=== PATIENT | male | born 1960 | race American Indian/Alaskan Native ===

== ENCOUNTER 2016-12-28 13:03 | Inpatient (IN) | payer MEDICAID ==
--- NOTE | 2016-12-28 13:36 | C.PDOC ---
History Of Present Illness 56 year old male presents to the ED with complaints of depression and suicidal ideations. Patient notes a history of depression and was previously admitted for depression and a suicide attempt. He began medications and has stopped using them. Patient plans to cut his wrists but denies any physical complaints at this time. Time Seen by Provider: 12/28/16 13:19 Chief Complaint (Nursing): Psychiatric Evaluation History Per: Patient History/Exam Limitations: no limitations Onset/Duration Of Symptoms: Unknown Current Symptoms Are (Timing): Still Present Suicide/Self Injury Attempted (Context): Other (unknown past attempt method. Current plan is to cut wrist. ) Associated Symptoms: Depression, Suicidal Thoughts, Suicidal Plan Involuntary Hold By: None Recent travel outside of the [place]: No Additional History Per: Prior Records Past Medical History Reviewed: Historical Data, Nursing Documentation, Vital Signs Vital Signs: Last Vital Signs Temp 97.9 F 12/28/16 16:14 Pulse 88 12/28/16 16:14 Resp 17 12/28/16 16:24 BP 148/88 12/28/16 16:14 Pulse Ox 100 12/28/16 16:14 - Medical History PMH: Depression, HTN Family History: States: Unknown Family Hx - Social History Hx Alcohol Use: Yes Hx Substance Use: No Review Of Systems Constitutional: Negative for: Fever, Chills Cardiovascular: Negative for: Chest Pain, Palpitations Respiratory: Negative for: Cough, Shortness of Breath Gastrointestinal: Negative for: Nausea, Vomiting, Abdominal Pain, Diarrhea Psych: Positive for: Depression, Suicidal ideation Physical Exam - Physical Exam Appears: Non-toxic, No Acute Distress Skin: Warm, Dry Head: Atraumatic Eye(s): bilateral: Normal Inspection, PERRL, EOMI Oral Mucosa: Moist Neck: Supple Chest: Symmetrical, No Deformity Cardiovascular: Rhythm Regular Respiratory: Normal Breath Sounds, No Rales, No Rhonchi, No Wheezing Gastrointestinal/Abdominal: Soft, No Tenderness, No Distention, No Guarding, No Rebound Extremity: Normal ROM, No Tenderness Neurological/Psych: Oriented x3, Normal Speech, Normal Cognition ED Course And Treatment - Laboratory Results Result Diagrams: 12/28/16 13:49 12/28/16 13:49 O2 Sat by Pulse Oximetry: 100 (on RA) Pulse Ox Interpretation: Normal Progress Note: Old records reviewed, and the patient has not been seen in this ED in the past. Medical Decision Making Medical Decision Making: Medically cleared for psych admission. The patient was evaluated by crisis team and was admitted to the psych floor. Disposition - Disposition Disposition: HOSPITALIZED Disposition Time: 16:00 Condition: GOOD - Clinical Impression Clinical Impression: Manic bipolar I disorder - Scribe Statement The provider has reviewed the documentation as recorded by the Altheaibe Debo Pascal All medical record entries made by the Zacarias were at my direction and personally dictated by me. I have reviewed the chart and agree that the record accurately reflects my personal performance of the history, physical exam, medical decision making, and the department course for this patient. I have also personally directed, reviewed, and agree with the discharge instructions and disposition.
[2016-12-28 13:55] LABS: BASO # 0.1 K/uL (0.0-0.2); BASO % 1.1 % (0.0-2.0); EOS # 0.3 K/uL (0.0-0.7); EOS % 3.3 % (0.0-4.0); HEMATOCRIT 39.2 % (35.0-51.0); LYMPH # 1.5 K/uL (1.0-4.3); LYMPH % 19.3 % (20.0-40.0); MEAN CELL VOLUME 91.6 fL (80.0-94.0); MEAN CORPUSCULAR HEMOGLOBIN 30.6 pg (27.0-31.0); MEAN CORPUSCULAR HGB CONC 33.4 g/dL (33.0-37.0); MEAN PLATELET VOLUME 7.4 fL (7.2-11.7); MONO # 0.8 K/uL (0.0-0.8); MONO % 9.8 % (0.0-10.0); NRBC % 0.1 % (0.0-2.0); RED CELL DISTRIBUTION WIDTH 13.2 % (11.5-14.5); WHITE BLOOD COUNT 7.9 K/uL (4.8-10.8)
[2016-12-28 14:02] LABS: CHLORIDE 103 mmol/L (98-107); SODIUM 143 mmol/L (132-148)
[2016-12-28 14:04] LABS: BILIRUBIN,TOTAL 0.6 mg/dL (0.2-1.3); GFR AFRICAN-AMERICAN > 60
[2016-12-28 14:05] LABS: ALB/GLOB RATIO 1.2 (1.0-2.1); ALKALINE PHOSPHATASE 63 U/L (38-126); ALT/SGPT 41 U/L (21-72); AST/SGOT 28 U/L (17-59); BLOOD UREA NITROGEN 16 mg/dL (9-20); CARBON DIOXIDE 25 mmol/L (22-30); GLUCOSE,RANDOM 91 mg/dL (75-110); TOTAL PROTEIN 7.6 g/dL (6.3-8.3)
[2016-12-28 14:06] LABS: ALCOHOL SERUM 34 mg/dl (0-10)
[2016-12-28 14:49] LABS: URINE BILIRUBIN NEGATIVE (NEGATIVE); URINE BLOOD NEGATIVE (NEGATIVE); URINE COLOR Yellow (YELLOW); URINE GLUCOSE (UA) NORMAL (Normal); URINE KETONE NEGATIVE (NEGATIVE); URINE LEUKOCYTE ESTERASE NEG Leu/uL (Negative); URINE PROTEIN NEGATIVE (NEGATIVE); URINE UROBILINOGEN NORMAL mg/dL (0.2-1.0); WBC URINE < 1 /hpf (0-5)
--- NOTE | 2016-12-28 17:18 | PCM.BM ---
<Mt Olivia - Last Filed: 12/28/16 17:17> Treatment Plan Problems - Problems identified on initial assessmt Depression Date Initiated: 12/28/16 Time Initiated: 16:30 Assessment reference: NA Status: Active Suicidal Ideation Date Initiated: 12/28/16 Time Initiated: 16:30 Assessment reference: NA Status: Active Treatment assets and liabiliti Patient Assests: adapts well, self-reliant, ADL independent Patient Liabilities: financial problems, substance abuse (ETOH), medical problems (Hypertension) - Milieu Protocol Maintain good personal hygiene: daily Encourage regular showers, daily Remind patient to perform daily oral care, every shift Assist patient to perform ADL's Maintain personal safety: every shift Educate patient to report safety concerns to staff, every shift Monitor environment for contraband/sharps Medication safety: Monitor for expected outcome, potential side effects: every shift, Assess barriers to learning: every shift, Assess readiness for medication education: every shift <Alexa Ann - Last Filed: 12/29/16 11:40> Family Contact Family involvement: Family/SO is involved Family contact: Patient agrees to contact Family contact name: Concepcion White- Family contacted how many times per week?: 1 Discharge/Continuing Care - Education Needs Education Needs: Patient Medication, Patient Coping Skills, Patient Aftercare Safety Plan - Discharge Discharge Criteria: Tolerates medication w/o severe side effects, Free of Suicidal thoughts, Reduction of target symptoms Discharge to:: Home, With Family - Treatment Team Participation Discussed with Family/SO: Yes Was Patient/Family/SO present at Treatment Team Meeting: Yes
--- NOTE | 2016-12-29 10:10 | PCM.PSYCH ---
Initial Psychiatric Evaluation - Initial Psychiatric Evaluation Type of Admission: Voluntary Legal Status: Capacity Chief Complaint (in patient's own words): "I was very depressed and having thoughts of hurting people" Patient's Reaction to Hospitalization: cooperative History of Present Illness and Precipitating Events: Patient is a 56 year old male who has a pmhx of paranoid schizophrenia, bipolar disorder, HTN, and chronic back pain. Patient's psychiatric medications were changed by his psychiatrist at [facility]. Patient was switched from seroquel to haldol which he said gave him GI upset so he stopped taking it about 3-4 days ago. He then started to experience severe depression with hopelessness and thinking that is better than life. He was hearing voices and once voice told him to get a knife and stab his . He also has visual hallucinations where he thinks he sees someone following him. He tried contacting his psychiatrist, but was unable to. He started getting violent and having thoughts of hurting people around him so his called 911. Patient has no history of drug abuse. Patient drinks 1/2 pint of alcohol every few days. Prior to admission patient had one shot of liquor and half of a beer. He has never been to rehab or detox for alcohol. Today patient said he woke up feeling much better, but is now feeling more depressed again. He does not want to socialize with anyone. Patient has no nausea, vomiting, abdominal pain, or tremors. Psychhx: schizophrenia, bipolar disorder, hospitalized about 4x for psychiatric issues 2 past suicide attempts: 3 years ago overdosed on tylenol, 1 [place] PMH: chronic back pain, hypertension Social history: , lives with , 2 children ages 32 and 29, patient works apartment house manager cleaning offices, denies drugs, 1/2 pint of alcohol every 2-3 days, cigarettes: 2 / week Current Medications: Active Medications Generic Name Dose Route Start Last Admin Trade Name Freq PRN Reason Stop Dose Admin Acetaminophen 650 mg 12/28/16 15:26 Tylenol 325mg Tab PO Q6 PRN Fever >100.4 F Benztropine Mesylate 2 mg 12/28/16 15:26 12/28/16 16:44 Cogentin PO 2 mg Q6 PRN Administration Extra Pyramidal Symptoms Clonidine HCl 0.1 mg 12/28/16 16:31 12/28/16 16:45 Catapres PO 0.1 mg Q8H PRN Administration Elevated Blood Pressure Diphenhydramine HCl 50 mg 12/28/16 15:26 12/28/16 21:01 Benadryl PO 50 mg Q6 PRN Administration Extra Pyramidal Symptoms Haloperidol 5 mg 12/28/16 15:26 12/28/16 16:45 Haldol PO 5 mg Q8 PRN Administration Moderate Agitation Haloperidol 5 mg 12/28/16 18:00 12/28/16 17:12 Haldol PO Not Given BID LENARD Haloperidol Lactate 5 mg 12/28/16 15:26 Haldol IM Q8 PRN Moderate Agitation Lisinopril 10 mg 12/29/16 10:00 Zestril PO DAILY LENARD Pneumococcal Polyvalent Vaccine 0.5 ml 12/30/16 10:00 Pneumovax 23 Vaccine IM 12/30/16 10:01 .ONCE ONE Trazodone HCl 50 mg 12/28/16 22:00 12/28/16 21:01 Desyrel PO 50 mg HS LENARD Administration Past Psychiatric History - Past Psychiatric History Previous Treatment History: Inpatient History of ETOH/Drug Use: alcohol: 1/2 pint every 2-3 days tobacco: 2 cigarettes/ week Pertinent Medical Hx (Current Medical&Sleep Prob, Allergies): Allergies Allergy/AdvReac Type Severity Reaction Status Date / Time FISH Allergy Verified 12/28/16 13:12 tomato Allergy Verified 12/28/16 13:12 Haloperidol [Haldol] 1 tab PO HS 12/28/16 Lisinopril [Zestril] 1 tab PO DAILY 12/28/16 Review of Systems - Psychiatric Psychiatric: Auditory Hallucinations, Depression, Homicidal Ideation, Hopelessness, Mood Swings, Suicidal Ideation, Visual Hallucinations Mental Status Examination - Affect Affect: Broad - Motor Activity Motor Activity: Calm - Reliability in Providing Information Reliability in Providing Information: Good - Speech Speech: Organized - Mood Mood: Depressed - Formal Thought Process Formal Thought Process: No Impairment - Obsessions/Compulsions Obsessions: No Compulsions: No - Cognitive Functions Orientation: Person, Place, Situation, Time Sensorium: Alert Attention/Concentration: Attentive Abstract Thinking: [place] Estimate of Intelligence: Average Judgement: Intact, as evidence by: Insight regarding need for hospitalization Memory: Recent intact, as evidence by: Ability to recall events of the day - Risk Risk: Suicidal, Homicidal - Strength & Assets Inventory Strength & Assets Inventory: Family support, Employment history DSM 5 DX - DSM 5 DSM 5 Diagnosis: schizophrenia bipolar disorder, current episode depressed alcohol abuse disorder - Recommended/Plan of Treatment Treatment Recommendations and Plan of Treatment: Schizphrenia Cogentin 2 mg prn Prolixin 5mg PO BID Diphenhydramine 50 mg PRN Haldol 5mg PRN Trazodone 50mg PO HS Attend groups and activities Support and psychoeducation [place] and CBT Refer to jail inpatient if possible Family contact Bipolar disorder, current episode: depression Depakote 250mg po BID Attend groups and activities Support and psychoeducation [place] and CBT Alcohol abuse disorder Attend groups and activities Support and psychoeducation Hypertension Lisinopril 10 mg po daily Catapres .1 mg po PRN elevated blood pressure 33min Prognosis: fair with medications - Smoking Cessation Smoking Cessation Initiated: No Reason for not providing: smokes rarely
[2016-12-29] MEDS: Aluminum Hydroxide/Magnesium Hydroxide Susp (30 mL) PO PRN (17:11)
[2016-12-29] MEDS: Divalproex 250 mg DR Tab PO SCH (17:55)
[2016-12-30] MEDS: Divalproex 250 mg DR Tab PO SCH ×2 (09:32→18:18)
[2016-12-30] MEDS ORDERED: Pneumococcal 23-Valent Vaccine IM ONE (10:00)
--- NOTE | 2016-12-30 17:54 | PCM.PYCHPN ---
Psychiatric Progress Note - Psychiatric Progress Note Patient seen today, length of contact: 15 minutes Patient Chief Complaint: I'm feeling much better. Can I get Flexeril for by back ache. Problems Identified/Issues Discussed: Patient seen. Chart reviewed. Case discussed with the staff. Issues related to illness and treatment were discussed with the patient. Reported compliant with treatment with no adverse affects. Tolerating treatment very well. Reported feeling much better with the treatment. Asking for Flexeril for his back ache. Education provided and offered Motrin. Patient accepted. We will start Motrin when necessary. At the time of evaluation, was awake alert oriented 3, had no delusions, no auditory or visual hallucinations, no suicidal ideations or homicidal ideations. Medical Problems: Hypertension Diagnostic Results: Reviewed DSM 5 Symptoms Update: Improving with treatment Medication Change: No Medical Record Reviewed: Yes Mental Status Examination - Cognitive Function Orientation: Person, Place, Situation, Time Memory: Intact Attention: WNL Concentration: WNL Association: WNL Fund of Knowledge: WNL Decription of patient's judgement and insights: Fair - Mood Mood: Depressed (Much less than before) - Affect Affect: Other (Appropriate) - Speech Speech: Appropriate - Formal Thought Process Formal Thought Process: No Impairment - Suicidal Ideation Suicidal Ideation: No - Homicidal Ideation Homicidal Ideation: No Goal/Treatment Plan - Goal/Treatment Plan Need for Continued Stay: Remain at risks for inpatient hospitalization, Discharge may exacerbated symptoms, Severe functional impairment Progress Toward Problem(s) and Goals/Treatment Plan: Patient education Supportive therapy Start Motrin 600 mg every 6 hours, when necessary for pain. Continue rest of the treatment as before Estimated Date of D/C: 01/04/17 - Smoking Cessation Smoking Cessation Initiated: No
[2016-12-30] MEDS: Aluminum Hydroxide/Magnesium Hydroxide Susp (30 mL) PO PRN (18:21)
[2016-12-31] MEDS: Aluminum Hydroxide/Magnesium Hydroxide Susp (30 mL) PO PRN ×2 (09:05→17:10)
[2016-12-31] MEDS: Divalproex 250 mg DR Tab PO SCH ×2 (09:05→17:10)
--- NOTE | 2016-12-31 16:09 | PCM.PYCHPN ---
Psychiatric Progress Note - Psychiatric Progress Note Patient seen today, length of contact: 15 minutes Patient Chief Complaint: I'm feeling much better. Problems Identified/Issues Discussed: Patient seen. Chart reviewed. Case discussed with the staff. Issues related to illness and treatment were discussed with the patient. Reported compliant with treatment with no adverse affects. Tolerating treatment very well. Reported feeling much better with the treatment. At the time of evaluation, was awake alert oriented 3, had no delusions, no auditory or visual hallucinations, no suicidal ideations or homicidal ideations. Medical Problems: Hypertension Diagnostic Results: Reviewed DSM 5 Symptoms Update: Improving with treatment Medication Change: No Medical Record Reviewed: Yes Mental Status Examination - Cognitive Function Orientation: Person, Place, Situation, Time Memory: Intact Attention: WNL Concentration: WNL Association: WNL Fund of Knowledge: [facility] Decription of patient's judgement and insights: Fair - Mood Mood: Depressed (Much less than before) - Affect Affect: Other (Appropriate) - Speech Speech: Appropriate - Formal Thought Process Formal Thought Process: No Impairment - Suicidal Ideation Suicidal Ideation: No - Homicidal Ideation Homicidal Ideation: No Goal/Treatment Plan - Goal/Treatment Plan Need for Continued Stay: Remain at risks for inpatient hospitalization, Discharge may exacerbated symptoms, Severe functional impairment Progress Toward Problem(s) and Goals/Treatment Plan: Patient education Supportive therapy Continue treatment as before Estimated Date of D/C: 01/04/17 - Smoking Cessation Smoking Cessation Initiated: No
[2017-01-01 07:34] VITALS: O2SAT 99
[2017-01-01] MEDS: Divalproex 250 mg DR Tab PO SCH ×2 (10:03→17:38)
[2017-01-01] MEDS: Aluminum Hydroxide/Magnesium Hydroxide Susp (30 mL) PO PRN ×2 (10:05→19:38)
--- NOTE | 2017-01-01 10:42 | PCM.PYCHPN ---
Psychiatric Progress Note - Psychiatric Progress Note Patient seen today, length of contact: 15 minutes Patient Chief Complaint: "I feel a little depressed." Problems Identified/Issues Discussed: The pt is seen, chart reviewed, case discussed with staff. The pt reports feeling slightly depressed. He states feeling upbeat and energized yesterday night. He was recently on change of medications. The pt reports feeling restless, since this morning. He describes his mood as an "emotional roller coaster." The pt reports hearing voices at 6 am this morning. He states they are commanding, with bizarre ideas, and encourage him to stay in isolation. He states they tell him to "walk through the hallways with only his underwear on," or "walk out of the hospital." However, the patient is aware of these voices and denies acting upon them. The patient denies hearing voices. The patient denies suicidal or homicidal ideation's. The pt seems highly motivated for treatment course. Support given, CBT and [place] used briefly. Pt is improving slowly and needs more time. No SEs from medications, risks discussed. After care discussed. Medication Change: No Medical Record Reviewed: Yes Mental Status Examination - Cognitive Function Orientation: Person, Place, Situation, Time Memory: Intact Attention: WNL Concentration: Poor Association: Loose Fund of Knowledge: WNL - Mood Mood: Depressed (Much less than before), Anxious - Affect Affect: Broad - Speech Speech: Appropriate, Soft - Formal Thought Process Formal Thought Process: Delusions, Paranoia, Loosening of associations - Suicidal Ideation Suicidal Ideation: No - Homicidal Ideation Homicidal Ideation: No Goal/Treatment Plan - Goal/Treatment Plan Need for Continued Stay: Remain at risks for inpatient hospitalization, Discharge may exacerbated symptoms, Severe functional impairment Progress Toward Problem(s) and Goals/Treatment Plan: schizoaffective disorder bipolar type Cogentin 2 mg prn Prolixin 5mg PO BID Diphenhydramine 50 mg PRN Haldol 5mg PRN Trazodone 50mg PO HS Attend groups and activities Support and psychoeducation [place] and CBT Refer to rodent exterminator inpatient if possible Family contact Depakote 250mg po BID Alcohol abuse disorder Attend groups and activities Support and psychoeducation Hypertension Lisinopril 10 mg po daily Catapres .1 mg po PRN elevated blood pressure Estimated Date of D/C: 01/04/17 - Smoking Cessation Smoking Cessation Initiated: No
[2017-01-02] MEDS: Divalproex 250 mg DR Tab PO SCH (09:35)
--- NOTE | 2017-01-02 10:04 | PCM.PYCHPN ---
Psychiatric Progress Note - Psychiatric Progress Note Patient seen today, length of contact: 15 minutes Patient Chief Complaint: "I feel fine." Problems Identified/Issues Discussed: The pt is seen, chart reviewed, case discussed with staff. The pt reports experiencing a panic attack last night. The pt reports improvement in the voices and psychosis. The pt reports feeling calmer, absent of any mood changes. He denies suicidal or homicidal ideation's. He reports eating well and sleeping well otherwise. Support given, CBT and [place] used briefly. Pt is improving slowly and needs more time. No SEs from medications, risks discussed. After care discussed. Medication Change: No Medical Record Reviewed: Yes Mental Status Examination - Cognitive Function Orientation: Person, Place, Situation, Time Memory: Intact Attention: WNL Concentration: Poor Association: Loose Fund of Knowledge: WNL - Mood Mood: Depressed (Much less than before), Anxious - Affect Affect: Broad - Speech Speech: Appropriate, Soft - Formal Thought Process Formal Thought Process: Delusions, Paranoia, Loosening of associations - Suicidal Ideation Suicidal Ideation: No - Homicidal Ideation Homicidal Ideation: No Goal/Treatment Plan - Goal/Treatment Plan Need for Continued Stay: Remain at risks for inpatient hospitalization, Discharge may exacerbated symptoms, Severe functional impairment Progress Toward Problem(s) and Goals/Treatment Plan: schizoaffective disorder bipolar type Cogentin 2 mg prn Prolixin 5mg PO BID Diphenhydramine 50 mg PRN Haldol 5mg PRN Trazodone 50mg PO HS Attend groups and activities Support and psychoeducation [place] and CBT Refer to termite exterminator helper inpatient if possible Family contact Depakote 250mg po BID Alcohol abuse disorder Attend groups and activities Support and psychoeducation Hypertension Lisinopril 10 mg po daily Catapres .1 mg po PRN elevated blood pressure Estimated Date of D/C: 01/04/17 - Smoking Cessation Smoking Cessation Initiated: No
[2017-01-02] MEDS: Aluminum Hydroxide/Magnesium Hydroxide Susp (30 mL) PO PRN ×2 (10:17→18:05)
[2017-01-02] MEDS: Divalproex 500 mg DR Tab PO SCH (18:05)
[2017-01-03] MEDS: Divalproex 500 mg DR Tab PO SCH ×2 (09:56→17:05)
[2017-01-03] MEDS: Aluminum Hydroxide/Magnesium Hydroxide Susp (30 mL) PO PRN ×2 (09:59→17:05)
--- NOTE | 2017-01-03 22:58 | PCM.PYCHPN ---
Psychiatric Progress Note - Psychiatric Progress Note Patient seen today, length of contact: 15 minutes Patient Chief Complaint: "I feel fine." Problems Identified/Issues Discussed: Patient seen and evaluated, chart reviewed and discussed with the nurse. Patient appears more organized and less paranoid and less delusional. Patient remained isolated, confined and withdrawn. Patient still appears mildly paranoid and delusional. He reports improvement in his mood and improvement in the feelings of hopelessness and helplessness. He is taking medication and denied any side effects. He needs more time for stabilization. Supportive therapy and psychoeducation were given. Medication Change: No Medical Record Reviewed: Yes Mental Status Examination - Cognitive Function Orientation: Person, Place, Situation, Time Memory: Intact Attention: WNL Concentration: Poor Association: Loose Fund of Knowledge: WNL - Mood Mood: Depressed (Much less than before), Anxious - Affect Affect: Broad - Speech Speech: Appropriate, Soft - Formal Thought Process Formal Thought Process: Delusions, Paranoia - Suicidal Ideation Suicidal Ideation: No - Homicidal Ideation Homicidal Ideation: No Goal/Treatment Plan - Goal/Treatment Plan Need for Continued Stay: Remain at risks for inpatient hospitalization, Discharge may exacerbated symptoms, Severe functional impairment Progress Toward Problem(s) and Goals/Treatment Plan: schizoaffective disorder bipolar type Cogentin 2 mg prn Prolixin 5mg PO BID Diphenhydramine 50 mg PRN Haldol 5mg PRN Trazodone 50mg PO HS Attend groups and activities Support and psychoeducation [place] and CBT Refer to veterinary pharmacologist inpatient if possible Family contact Depakote 250mg po BID Alcohol abuse disorder Attend groups and activities Support and psychoeducation Hypertension Lisinopril 10 mg po daily Catapres .1 mg po PRN elevated blood pressure Estimated Date of D/C: 01/04/17 - Smoking Cessation Smoking Cessation Initiated: No
[2017-01-04] MEDS: Aluminum Hydroxide/Magnesium Hydroxide Susp (30 mL) PO PRN ×2 (10:28→17:40)
[2017-01-04] MEDS: Divalproex 500 mg DR Tab PO SCH ×2 (10:28→17:22)
--- NOTE | 2017-01-04 12:05 | PCM.PYCHPN ---
Psychiatric Progress Note - Psychiatric Progress Note Patient seen today, length of contact: 16 minutes Patient Chief Complaint: "I feel fine." Problems Identified/Issues Discussed: Patient seen and evaluated, chart reviewed and discussed with the nurse. Patient appears much improvement in the voices and psychosis. He reports improvement in his mood and improvement in the feelings of hopelessness and helplessness. He is taking medication and denied any side effects. He needs more time for stabilization. Supportive therapy and psychoeducation were given. Medication Change: No Medical Record Reviewed: Yes Mental Status Examination - Cognitive Function Orientation: Person, Place, Situation, Time Memory: Intact Attention: WNL Concentration: WNL Association: [facility] Fund of Knowledge: [facility] - Mood Mood: Depressed (Much less than before), Anxious - Affect Affect: Broad - Speech Speech: Appropriate, Soft - Formal Thought Process Formal Thought Process: No Impairment - Suicidal Ideation Suicidal Ideation: No - Homicidal Ideation Homicidal Ideation: No Goal/Treatment Plan - Goal/Treatment Plan Need for Continued Stay: Remain at risks for inpatient hospitalization, Discharge may exacerbated symptoms, Severe functional impairment Progress Toward Problem(s) and Goals/Treatment Plan: schizoaffective disorder bipolar type Cogentin 2 mg prn Prolixin 5mg PO BID Diphenhydramine 50 mg PRN Haldol 5mg PRN Trazodone 50mg PO HS Attend groups and activities Support and psychoeducation [place] and CBT Refer to manager intermediate inpatient if possible Family contact Depakote 250mg po BID Alcohol abuse disorder Attend groups and activities Support and psychoeducation Hypertension Lisinopril 10 mg po daily Catapres .1 mg po PRN elevated blood pressure Estimated Date of D/C: 01/04/17 - Smoking Cessation Smoking Cessation Initiated: No
[2017-01-05 07:04] VITALS: BP 136/86; PULSE 91; RESP 19; TEMP 97.9
[2017-01-05] MEDS: Divalproex 500 mg DR Tab PO SCH (09:40)
[2017-01-05] MEDS: Aluminum Hydroxide/Magnesium Hydroxide Susp (30 mL) PO PRN (09:57)
--- NOTE | 2017-01-05 09:58 | PCM.PYCHDC ---
Mental Status Examination - Mental Status Examination Orientation: Person, Place, Situation, Time Memory: Intact Mood: Neutral Affect: Constricted Speech: Soft Attention: WNL Concentration: WNL Association: WNL Fund of Knowledge: WNL Formal Thought Process: No Impairment Description of patient's judgement and insight: good, fair Psychotic Thoughts and Behaviors: denies any AVH Suicidal Ideation: No Current Homicidal Ideation?: No Discharge Summary - Discharge Note Reason for Hospitalization: Patient is a 56 year old male who has a pmhx of paranoid schizophrenia, bipolar disorder, HTN, and chronic back pain. Patient's psychiatric medications were changed by his psychiatrist at [facility] Patient was switched from seroquel to haldol which he said gave him GI upset so he stopped taking it about 3-4 days ago. He then started to experience severe depression with hopelessness and thinking that is better than life. He was hearing voices and once voice told him to get a knife and stab his . He also has visual hallucinations where he thinks he sees someone following him. He tried contacting his psychiatrist, but was unable to. He started getting violent and having thoughts of hurting people around him so his called 911. Patient has no history of drug abuse. Patient drinks 1/2 pint of alcohol every few days. Prior to admission patient had one shot of liquor and half of a beer. He has never been to rehab or detox for alcohol. Today patient said he woke up feeling much better, but is now feeling more depressed again. He does not want to socialize with anyone. Patient has no nausea, vomiting, abdominal pain, or tremors. Psychhx: schizophrenia, bipolar disorder, hospitalized about 4x for psychiatric issues 2 past suicide attempts: 3 years ago overdosed on tylenol, 1 year ago [place] PMH: chronic back pain, hypertension Social history: , lives with , 2 children ages 32 and 29, patient works auto parts clerk cleaning offices, denies drugs, 1/2 pint of alcohol every 2-3 days, cigarettes: 2 / week Consultations:: List each consultation separately and include: 1. Reason for request. 2. Findings. 3. Follow-up Summary of Hospital Course include:: 1. Description of specific treatment plan utilized for patients during their course of treatmen. 2. Summarize the time- course for resolution of acute symptoms and/or regressed behaviors. 3. Describe issues identified and worked on during hospitalization. 4. Describe medication utilized. 5. Describe medical problems identified and treated. 6. Reassessment of suicide risk Summary of Hospital Course: During the course of his stay, patient (pt) started progressively improving and he no longer remained irritable, depressed, suicidal and paranoid. His mood and paranoia were improved and he started attending groups and meetings and started socializing. Patient denied any feelings of hopelessness, helplessness, and worthlessness, denied any problem with the sleep or appetite, denied suicidal ideation or homicidal ideation. Pt denied any auditory or visual hallucinations. Some changes were made in his current medications and patient was discharged on following medications. He tolerated these medications very well and denied any side effects. - Final Diagnosis (DSM 5) Condition upon Discharge: GOOD DSM 5: Schizoaffective disorder bipolar type Alcohol use disorder severe Disposition: HOME/ ROUTINE Follow-up Treatment Plan: Education: Pt was educated and counseled about the risks and benefits of taking and not taking medications. Pt was educated and counseled about the risks of drinking and abusing drugs. Pt was educated and counseled to go to the ER or call 911 if pt develop suicidal ideation or homicidal ideation, worsening of symptoms or severe side effects of the meds. Prescriptions/Medication Reconciliation: amLODIPine [Norvasc] 10 mg PO DAILY #30 tab Divalproex [Depakote DR] 500 mg PO BID #60 tcp fluPHENAZine [Prolixin] 5 mg PO BID #60 tab QUEtiapine [SEROquel] 200 mg PO HS #30 tab - Smoking Cessation Smoking Cessation Medication prescribed: No - Antipsychotic Medications Pt discharged on 2 or more routine antipsychotic medications: No
== END 2017-01-05 11:00 | disposition home or self-care (01) | DRG 430 ==
LOC: C.ER 13:03 → C.5E 15:56
PROVIDERS: ADMIT Psychiatry & Neurology Psychiatry; ATTEND Psychiatry & Neurology Psychiatry
PROC: GZ56ZZZ Individual Psychotherapy, Supportive (ICD-10-PCS; principal; 2016-12-28)
DX: F25.0 Schizoaffective disorder, bipolar type (principal); R45.851 Suicidal ideations; I10 Essential (primary) hypertension; F10.10 Alcohol abuse, uncomplicated; F17.210 Nicotine dependence, cigarettes, uncomplicated; Y90.1 Blood alcohol level of 20-39 mg/100 ml

== ENCOUNTER 2017-09-13 14:50 | Inpatient (IN) | payer MEDICAID ==
[2017-09-13 16:18] LABS: BASO # 0.1 K/uL (0.0-0.2); BASO % 1.3 % (0.0-2.0); EOS # 0.2 K/uL (0.0-0.7); EOS % 2.7 % (0.0-4.0); HEMOGLOBIN 14.7 g/dL (12.0-18.0); LYMPH % 22.4 % (20.0-40.0); MEAN CORPUSCULAR HGB CONC 35.2 g/dL (33.0-37.0); MEAN PLATELET VOLUME 7.3 fL (7.2-11.7); MONO # 0.7 K/uL (0.0-0.8); MONO % 7.4 % (0.0-10.0); NEUT % 66.2 % (50.0-75.0); NRBC % 0.1 % (0.0-2.0); RBC 4.73 Mil/uL (4.40-5.90); RED CELL DISTRIBUTION WIDTH 13.3 % (11.5-14.5); WHITE BLOOD COUNT 9.1 K/uL (4.8-10.8)
[2017-09-13 16:29] LABS: ALB/GLOB RATIO 1.2 (1.0-2.1); ALBUMIN 4.4 g/dL (3.5-5.0); ALT/SGPT 37 U/L (21-72); AST/SGOT 38 U/L (17-59); BLOOD UREA NITROGEN 17 mg/dL (9-20); CALCIUM 9.4 mg/dl (8.6-10.4); GFR AFRICAN-AMERICAN > 60; GFR NON-AFRICAN AMERICAN > 60
[2017-09-13 16:34] LABS: MEAN CELL VOLUME 87.9 fL (80.0-94.0)
[2017-09-13 16:45] LABS: SQUAMOUS EPITHIAL < 1 /hpf (0-5); URINE BILIRUBIN NEGATIVE (NEGATIVE); URINE BLOOD NEGATIVE (NEGATIVE); URINE CLARITY Hazy (Clear); URINE COLOR Amber (YELLOW); URINE GLUCOSE (UA) NORMAL (Normal); URINE LEUKOCYTE ESTERASE NEG Leu/uL (Negative); URINE PROTEIN NEGATIVE (NEGATIVE); URINE UROBILINOGEN NORMAL mg/dL (0.2-1.0)
[2017-09-13 16:46] LABS: URINE BACTERIA OCC (<OCC)
[2017-09-13 16:52] LABS: BARBITURATES, UR NEGATIVE (NEGATIVE); BENZODIAZEPINES, UR NEGATIVE (NEGATIVE); PHENCYCLIDINE, UR NEGATIVE (NEGATIVE)
[2017-09-13 16:54] LABS: OPIATES, UR POSITIVE (NEGATIVE)
--- NOTE | 2017-09-13 18:41 | C.PDOC ---
History Of Present Illness 57y/o male presents to the ER complaining of hearing voices. Patient states that the voices are telling him, " to hurt himself and people that I love." Patient denies having active physical complaints. Time Seen by Provider: 09/13/17 15:50 Chief Complaint (Nursing): Psychiatric Evaluation History Per: Patient History/Exam Limitations: no limitations Onset/Duration Of Symptoms: Hrs Current Symptoms Are (Timing): Still Present Severity: Moderate Past Medical History Reviewed: Historical Data, Nursing Documentation, Vital Signs Vital Signs: Last Vital Signs Temp 98.2 F 09/13/17 15:12 Pulse 97 H 09/13/17 15:12 Resp 19 09/13/17 15:12 BP 134/91 H 09/13/17 15:12 Pulse Ox 99 09/13/17 18:58 - Medical History PMH: Asthma, Bipolar Disorder, Depression, HTN, Schizophrenia Denies: Diabetes, Hepatitis, HIV, Seizures, Sexually Transmitted Disease Surgical History: No Surg Hx - [facility] INDIVIDUAL PSYCHOTHERAPY, SUPPORTIVE (12/28/16) Family History: States: No Known Family Hx - Social History Hx Alcohol Use: Yes Hx Substance Use: No - Immunization History Hx Tetanus Toxoid Vaccination: No Hx Influenza Vaccination: No Hx Pneumococcal Vaccination: No Review Of Systems Except As Marked, All Systems Reviewed And Found Negative. Constitutional: Negative for: Fever, Chills Neurological: Positive for: Other (hallucinations) Psych: Positive for: Suicidal ideation Physical Exam - Physical Exam Appears: No Acute Distress Skin: Normal Color, Warm, Dry Head: Atraumatic, Normacephalic Eye(s): bilateral: Normal Inspection Nose: Normal Oral Mucosa: Moist Neck: Supple Chest: Symmetrical Cardiovascular: Rhythm Regular Respiratory: Normal Breath Sounds, No Rales, No Rhonchi, No Wheezing Gastrointestinal/Abdominal: Normal Exam, Bowel Sounds ((+) bowel sounds), Soft, No Tenderness, No Guarding, No Rebound Neurological/Psych: Oriented x3, Normal Speech ED Course And Treatment - Laboratory Results Result Diagrams: 09/13/17 16:13 09/13/17 16:13 O2 Sat by Pulse Oximetry: 99 (RA) Pulse Ox Interpretation: Normal Medical Decision Making Medical Decision Making: Assessment: Hallucinations Plan: --Labs --UA --Crisis Evaluation Updates: Patient has been medically cleared for Crisis Evaluation. Disposition Discussed With : Gutierrez aDs - Disposition Disposition Time: 19:00 Condition: STABLE Forms: [facility] (Icelandic) - Clinical Impression Clinical Impression: Suicide ideation - Scribe Statement The provider has reviewed the documentation as recorded by the Scribe Jemal Rodriguez Provider Attestation: All medical record entries made by the Scribe were at my direction and personally dictated by me. I have reviewed the chart and agree that the record accurately reflects my personal performance of the history, physical exam, medical decision making, and the department course for this patient. I have also personally directed, reviewed, and agree with the discharge instructions and disposition. Physician Patient Turnover Patient Signed Over To: Gutierrez Das Handoff Comments: pending crisis evaluation and disposition
[2017-09-13 20:12] VITALS: O2SAT 98
[2017-09-13] MEDS ORDERED: Albuterol HFA 90 mcg/actuation (8 g) INH PRN (21:09)
--- NOTE | 2017-09-13 21:14 | PCM.BM ---
<Kaitlin Yeager - Last Filed: 09/13/17 21:12> Treatment Plan Problems - Problems identified on initial assessmt depression Date Initiated: 09/13/17 Time Initiated: 21:12 Assessment reference: NA Status: Active anxiety Date Initiated: 09/13/17 Time Initiated: 21:12 Assessment reference: NA Status: Active Treatment assets and liabiliti Patient Assests: adapts well, cooperative, educated, self-reliant, ADL independent, good support system, negotiates basic needs, cognitively intact Patient Liabilities: physical pain - Milieu Protocol Maintain good personal hygiene: daily Encourage regular showers, daily Remind patient to perform daily oral care, daily Assist patient to perform ADL's Conduct patient checks and document Observation sheet: 1:1 Maintain personal safety: every shift Educate patient to report safety concerns to staff, every shift Monitor environment for contraband/sharps Medication safety: Monitor for expected outcome, potential side effects: every shift, Assess barriers to learning: every shift, Assess readiness for medication education: every shift <Alexa Ann - Last Filed: 09/14/17 11:23> Family Contact Family involvement: Family/SO is involved Family contact: Patient agrees to contact Family contact name: Concepcion White- Family contacted how many times per week?: 1 - Goals for Treatment Patient goals for treatment: "I need to be on the right medication." Discharge/Continuing Care - Education Needs Education Needs: Patient Medication, Patient Coping Skills - Discharge Discharge Criteria: Tolerates medication w/o severe side effects, No longer exhibiting s/s of withdrawal, Reduction of target symptoms Discharge to:: Home, With Family - Treatment Team Participation Discussed with Family/SO: No Was Patient/Family/SO present at Treatment Team Meeting: Yes <Ghassan Robertson - Last Filed: 09/14/17 11:26> - Diagnosis (1) Bipolar 1 disorder Status: Acute Interventions: 09/14/17 11:25 * Assess/adjust medications daily and /or as needed * See patient on an individual basis 7x/week to assess level of manic behaviors and stability * Discuss risks, benefits, side effects and alternatives of medications * (2) Alcohol use disorder, moderate, dependence Status: Acute Interventions: 09/14/17 11:26 * Assess 7x/week regarding severity of withdrawal * Educate regarding risks, benefits, side effects and alternatives of medications * Use Motivational Interviewing for abstinence * Use CBT for relapse prevention * Medication management for withdrawal symptoms * Encourage medication assisted treatment *
--- NOTE | 2017-09-14 09:49 | PCM.PSYCH ---
Initial Psychiatric Evaluation - Initial Psychiatric Evaluation Type of Admission: Voluntary Legal Status: Capacity Chief Complaint (in patient's own words): CC: "I'm hearing voices, feeling anxious and down" History of Present Illness and Precipitating Events: HPI: 57 year old AA male with PMHx of bipolar disorder, HTN, asthma presents for depression, anxiety, and thoughts of harming himself and his . He states that he was incarcerated at the end of 2016 and that he could no get Seroquel in alf and no substituted medications helped his bipolar symptoms. He states he gradually declined and has recently restarted on Seroquel 300 mg BID and Buspar 5 mg TID by his psychiatrist 1 month ago, with plan to raise Buspar to 10 mg TID. He has been compliant with medications and they have been helping but a few days ago he saw a picture of his brother who had passed a year ago, and became overwhelmed with sadness and anger. He complains of hearing avoice telling him to kill himself and stab his . He has not had these auditory hallucinations in the last day. Patient states he "feels violent " and often finds himself "alternating between high spirits and feeling sad, useless, lost, and lonely." He has difficulty sleeping and racing thoughts. Denies visual hallucinations and paranoia. He has a supportive who encouraged him to come to the hospital. PsychHx: last hospitalized at [facility] Dec 2016 for alcohol use disorder and suicidal/homicidal ideation; 2 past suicide attempts: 3 years ago overdosed on tylenol, [place]; last saw psychiatrist 1 month ago SocialHx: lives with ; former smoker; history of alcohol abuse, currently claims to drink 2 beers/week; former heroin user, claims sobriety in last 6 months; patient states that one of his pain medications for chronic back pain contains codeine; denies marijuana, cocaine use; unemployed, used to work in construction PMHx: HTN, asthma, chronic back pain Current Medications: Active Medications Generic Name Dose Route Start Last Admin Trade Name Freq PRN Reason Stop Dose Admin Albuterol 1 puff 09/13/17 21:09 Ventolin Hfa 90 Mcg/Actuation (8 G) INH RQ4 PRN Shortness of Breath Amlodipine Besylate 10 mg 05/04/18 10:00 Norvasc PO DAILY [facility] Clonidine HCl 0.1 mg 09/13/17 21:10 Catapres PO Q8 PRN COWS Score More or Equal to 5 Folic Acid 1 mg 09/14/17 10:00 Folic Acid PO DAILY [facility] Hydroxyzine HCl 25 mg 09/13/17 20:54 Atarax PO Q6 PRN Anxiety Ibuprofen 400 mg 09/13/17 21:08 09/13/17 21:20 Motrin Tab PO 400 mg Q6 PRN Administration Pain, moderate (4-7) Loperamide HCl 2 mg 09/13/17 21:08 Imodium PO Q8 PRN Diarrhea Lorazepam 1 mg 09/13/17 21:09 09/13/17 21:20 Ativan PO 09/14/17 21:10 1 mg Q4H PRN Administration Symptoms of alcohol withdrawl Multivitamins 1 tab 09/14/17 10:00 Hexavitamin PO DAILY [facility] Ondansetron HCl 4 mg 09/13/17 20:57 Zofran Tab PO Q8 PRN Nausea/Vomiting Quetiapine Fumarate 200 mg 09/13/17 21:00 09/13/17 21:20 Seroquel PO 200 mg BID [facility] Administration Thiamine HCl 100 mg 09/14/17 10:00 Vitamin B1 Tab PO DAILY [facility] Past Psychiatric History - Past Psychiatric History Previous Treatment History: Inpatient Pertinent Medical Hx (Current Medical&Sleep Prob, Allergies): Allergies Allergy/AdvReac Type Severity Reaction Status Date / Time FISH Allergy Verified 09/13/17 15:18 tomato Allergy Verified 09/13/17 15:18 Haloperidol [Haldol] 1 tab PO HS 12/28/16 Lisinopril [Zestril] 1 tab PO DAILY 12/28/16 Divalproex [Depakote DR] 500 mg PO BID #60 tcp 01/05/17 QUEtiapine [SEROquel] 200 mg PO HS #30 tab 01/05/17 amLODIPine [Norvasc] 10 mg PO DAILY #30 tab 01/05/17 fluPHENAZine [Prolixin] 5 mg PO BID #60 tab 01/05/17 Review of Systems - Review of Systems All systems: reviewed and no additional remarkable complaints except - Psychiatric Psychiatric: Abnormal Sleep Pattern, Anxiety, Auditory Hallucinations, Depression, Irritability, Suicidal Ideation Mental Status Examination - Personal Presentation Personal Presentation: Looks stated age - Affect Affect: Constricted, Depressed - Motor Activity Motor Activity: Calm - Reliability in Providing Information Reliability in Providing Information: Good - Speech Speech: Organized - Mood Mood: Depressed, Anxious - Formal Thought Process Formal Thought Process: Hallucinations, Delusions - Hallucinations/Delusions Hallucinations: Auditory - Obsessions/Compulsions Obsessions: No Compulsions: No - Cognitive Functions Orientation: Person, Place, Situation, Time Sensorium: Alert Attention/Concentration: Attentive Abstract Thinking: [place] Estimate of Intelligence: Average Judgement: Imparied, as evidence by: Poor judgement, Imparied, as evidence by: Lack of insight into illness - Risk Risk: Suicidal, Homicidal, Diminished functioning - Limitations Limitations: Living alone DSM 5 DX - DSM 5 DSM 5 Diagnosis: Bipolar I disorder mixed severe with psychotic features Alcohol use disorder moderate Opiate use disorder moderate - Recommended/Plan of Treatment Treatment Recommendations and Plan of Treatment: Bipolar I disorder mixed severe with psychotic features -psychotherapy -supportive therapy, group therapy, individual therapy -Atarax 25 mg PO Q6 prn -Seroquel 200 mg PO bid Alcohol use disorder moderate -psychoeducation -supportive therapy, group therapy, individual therapy -FL for abstinence -Librium 25 mg PO Q8 prn -Clonidine 0.1 mg PO Q8 prn -Thiamine 100 mg PO daily -Folic acid 1 mg PO daily -Multivitamin daily Opiate use disorder moderate -psychoeducation -supportive therapy, group therapy, individual therapy -FL for abstinence -Ibuprofen 400 mg PO Q6 prn -Imodium 2 mg PO Q8 prn -Zofran 4 mg PO Q8 prn HTN -Norvasc 10 mg PO daily Asthma -Albuterol INH RQ4
[2017-09-14] MEDS: Multiple Vitamins Tab PO SCH (09:51)
[2017-09-15] MEDS: Multiple Vitamins Tab PO SCH (09:17)
--- NOTE | 2017-09-15 23:38 | PCM.PYCHPN ---
Psychiatric Progress Note - Psychiatric Progress Note Patient seen today, length of contact: 15 Minutes Mental Status Examination - Cognitive Function Orientation: Person, Place, Situation, Time - Mood Mood: Depressed, Anxious - Affect Affect: Constricted, Depressed - Formal Thought Process Formal Thought Process: Hallucinations, Delusions - Homicidal Ideation Homicidal Ideation: Yes
[2017-09-16] MEDS: Multiple Vitamins Tab PO SCH (09:17)
[2017-09-16] MEDS ORDERED: Aluminum Hydroxide/Magnesium Hydroxide Susp (30 mL) PO SCH (18:00)
[2017-09-17] MEDS: Multiple Vitamins Tab PO SCH (09:19)
[2017-09-17] MEDS: Aluminum Hydroxide/Magnesium Hydroxide Susp (30 mL) PO PRN ×2 (10:38→19:25)
--- NOTE | 2017-09-17 10:57 | PCM.PYCHPN ---
Psychiatric Progress Note - Psychiatric Progress Note Patient seen today, length of contact: 15 Minutes Patient Chief Complaint: CC: "I'm hearing voices, feeling anxious and down" Mental Status Examination - Cognitive Function Orientation: Person, Place, Situation, Time - Mood Mood: Depressed, Anxious - Affect Affect: Constricted, Depressed - Formal Thought Process Formal Thought Process: Hallucinations, Delusions - Homicidal Ideation Homicidal Ideation: Yes Goal/Treatment Plan - Goal/Treatment Plan Progress Toward Problem(s) and Goals/Treatment Plan: Bipolar I disorder mixed severe with psychotic features -psychotherapy -supportive therapy, group therapy, individual therapy -Atarax 25 mg PO Q6 prn -Seroquel 200 mg PO bid Alcohol use disorder moderate -psychoeducation -supportive therapy, group therapy, individual therapy -ND for abstinence -Librium 25 mg PO Q8 prn -Clonidine 0.1 mg PO Q8 prn -Thiamine 100 mg PO daily -Folic acid 1 mg PO daily -Multivitamin daily Opiate use disorder moderate -psychoeducation -supportive therapy, group therapy, individual therapy -ND for abstinence -Ibuprofen 400 mg PO Q6 prn -Imodium 2 mg PO Q8 prn -Zofran 4 mg PO Q8 prn HTN -Norvasc 10 mg PO daily Asthma -Albuterol INH RQ4
[2017-09-18] MEDS: Multiple Vitamins Tab PO SCH (09:40)
[2017-09-18] MEDS: Aluminum Hydroxide/Magnesium Hydroxide Susp (30 mL) PO PRN ×2 (10:45→21:18)
--- NOTE | 2017-09-18 12:19 | PCM.PYCHPN ---
Psychiatric Progress Note - Psychiatric Progress Note Patient seen today, length of contact: 15 Minutes Patient Chief Complaint: CC: "I'm hearing voices, feeling anxious and down" Mental Status Examination - Cognitive Function Orientation: Person, Place, Situation, Time - Mood Mood: Depressed, Anxious - Affect Affect: Constricted, Depressed - Formal Thought Process Formal Thought Process: Hallucinations, Delusions - Homicidal Ideation Homicidal Ideation: Yes Goal/Treatment Plan - Goal/Treatment Plan Progress Toward Problem(s) and Goals/Treatment Plan: Bipolar I disorder mixed severe with psychotic features -psychotherapy -supportive therapy, group therapy, individual therapy -Atarax 25 mg PO Q6 prn -Seroquel 200 mg PO bid Alcohol use disorder moderate -psychoeducation -supportive therapy, group therapy, individual therapy -PA for abstinence -Librium 25 mg PO Q8 prn -Clonidine 0.1 mg PO Q8 prn -Thiamine 100 mg PO daily -Folic acid 1 mg PO daily -Multivitamin daily Opiate use disorder moderate -psychoeducation -supportive therapy, group therapy, individual therapy -PA for abstinence -Ibuprofen 400 mg PO Q6 prn -Imodium 2 mg PO Q8 prn -Zofran 4 mg PO Q8 prn HTN -Norvasc 10 mg PO daily Asthma -Albuterol INH RQ4
[2017-09-18] MEDS ORDERED: Pantoprazole 20 mg EC Tab PO STA (15:44)
[2017-09-18] MEDS ORDERED: Calcium Carbonate 500 mg Chewable Antacid Tab PO PRN (15:51)
[2017-09-19] MEDS ORDERED: Pantoprazole 20 mg EC Tab PO SCH (10:00)
[2017-09-19] MEDS: Multiple Vitamins Tab PO SCH (10:12)
[2017-09-19] MEDS ORDERED: Pantoprazole 20 mg EC Tab PO STA (20:01)
[2017-09-20 06:27] VITALS: BP 133/93; PULSE 90; RESP 20; TEMP 97.5
[2017-09-20] MEDS: Multiple Vitamins Tab PO SCH (09:06)
[2017-09-20] MEDS ORDERED: Pantoprazole 20 mg EC Tab PO SCH (10:00)
--- NOTE | 2017-09-20 10:38 | PCM.PYCHPN ---
Psychiatric Progress Note - Psychiatric Progress Note Patient seen today, length of contact: 15 Minutes Patient Chief Complaint: CC: "I'm hearing voices, feeling anxious and down" Mental Status Examination - Cognitive Function Orientation: Person, Place, Situation, Time Memory: Intact Attention: WNL Concentration: WNL Association: WNL Fund of Knowledge: WNL Decription of patient's judgement and insights: good, fair - Mood Mood: Neutral - Affect Affect: Constricted - Speech Speech: Soft - Formal Thought Process Formal Thought Process: No Impairment Psychotic Thoughts and Behaviors: denies any AVH - Suicidal Ideation Suicidal Ideation: No - Homicidal Ideation Homicidal Ideation: No Goal/Treatment Plan - Goal/Treatment Plan Need for Continued Stay: Severe depression anxiety, Severe functional impairment Progress Toward Problem(s) and Goals/Treatment Plan: Bipolar I disorder mixed severe with psychotic features -psychotherapy -supportive therapy, group therapy, individual therapy -Atarax 25 mg PO Q6 prn -Seroquel 200 mg PO bid Alcohol use disorder moderate -psychoeducation -supportive therapy, group therapy, individual therapy -FL for abstinence -Librium 25 mg PO Q8 prn -Clonidine 0.1 mg PO Q8 prn -Thiamine 100 mg PO daily -Folic acid 1 mg PO daily -Multivitamin daily Opiate use disorder moderate -psychoeducation -supportive therapy, group therapy, individual therapy -FL for abstinence -Ibuprofen 400 mg PO Q6 prn -Imodium 2 mg PO Q8 prn -Zofran 4 mg PO Q8 prn HTN -Norvasc 10 mg PO daily Asthma -Albuterol INH RQ4 - Smoking Cessation Smoking Cessation Initiated: No
--- NOTE | 2017-09-20 10:38 | PCM.PYCHDC ---
Mental Status Examination - Mental Status Examination Orientation: Person, Place, Situation, Time Memory: Intact Mood: Neutral Affect: Constricted Speech: Soft Attention: WNL Concentration: WNL Association: WNL Fund of Knowledge: WNL Formal Thought Process: No Impairment Description of patient's judgement and insight: good, fair Psychotic Thoughts and Behaviors: denies any AVH Suicidal Ideation: No Current Homicidal Ideation?: No Discharge Summary - Discharge Note Reason for Hospitalization: HPI: 57 year old AA male with PMHx of bipolar disorder, HTN, asthma presents for depression, anxiety, and thoughts of harming himself and his . He states that he was incarcerated at the end of 2017 and that he could no get Seroquel in [facility] and no substituted medications helped his bipolar symptoms. He states he gradually declined and has recently restarted on Seroquel 300 mg BID and Buspar 5 mg TID by his psychiatrist 1 month ago, with plan to raise Buspar to 10 mg TID. He has been compliant with medications and they have been helping but a few days ago he saw a picture of his brother who had passed a year ago, and became overwhelmed with sadness and anger. He complains of hearing avoice telling him to kill himself and stab his . He has not had these auditory hallucinations in the last day. Patient states he "feels violent " and often finds himself "alternating between high spirits and feeling sad, useless, lost, and lonely." He has difficulty sleeping and racing thoughts. Denies visual hallucinations and paranoia. He has a supportive who encouraged him to come to the hospital. PsychHx: last hospitalized at [facility] Dec 2016 for alcohol use disorder and suicidal/homicidal ideation; 2 past suicide attempts: 3 years ago overdosed on tylenol, 1 year [place]; last saw psychiatrist 1 month ago SocialHx: lives with ; former smoker; history of alcohol abuse, currently claims to drink 2 beers/week; former heroin user, claims sobriety in last 6 months; patient states that one of his pain medications for chronic back pain contains codeine; denies marijuana, cocaine use; unemployed, used to work in construction Consultations:: List each consultation separately and include: 1. Reason for request. 2. Findings. 3. Follow-up Summary of Hospital Course include:: 1. Description of specific treatment plan utilized for patients during their course of treatmen. 2. Summarize the time- course for resolution of acute symptoms and/or regressed behaviors. 3. Describe issues identified and worked on during hospitalization. 4. Describe medication utilized. 5. Describe medical problems identified and treated. 6. Reassessment of suicide risk Summary of Hospital Course: HPI: 57 year old AA male with PMHx of bipolar disorder, HTN, asthma presents for depression, anxiety, and thoughts of harming himself and his . He states that he was incarcerated at the end of 2016 and that he could no get S[facility]quel in [facility] and no substituted medications helped his bipolar symptoms. He states he gradually declined and has recently restarted on Seroquel 300 mg BID and Buspar 5 mg TID by his psychiatrist 1 month ago, with plan to raise Buspar to 10 mg TID. He has been compliant with medications and they have been helping but a few days ago he saw a picture of his brother who had passed a year ago, and became overwhelmed with sadness and anger. He complains of hearing avoice telling him to kill himself and stab his . He has not had these auditory hallucinations in the last day. Patient states he "feels violent " and often finds himself "alternating between high spirits and feeling sad, useless, lost, and lonely." He has difficulty sleeping and racing thoughts. Denies visual hallucinations and paranoia. He has a supportive who encouraged him to come to the hospital. PsychHx: last hospitalized at [facility] Dec 2016 for alcohol use disorder and suicidal/homicidal ideation; 2 past suicide attempts: 3 years ago overdosed on tylenol, 1 year [place]; last saw psychiatrist 1 month ago SocialHx: lives with ; former smoker; history of alcohol abuse, currently claims to drink 2 beers/week; former heroin user, claims sobriety in last 6 months; patient states that one of his pain medications for chronic back pain contains codeine; denies marijuana, cocaine use; unemployed, used to work in construction PMHx: HTN, asthma, chronic back pain - Diagnosis (1) Bipolar 1 disorder Current Visit: Yes Status: Acute (2) Alcohol use disorder, moderate, dependence Current Visit: Yes Status: Acute - Final Diagnosis (DSM 5) Condition upon Discharge: FAIR DSM 5: Bipolar I disorder mixed severe with psychotic features Alcohol use disorder moderate Opiate use disorder moderate Disposition: HOME/ ROUTINE Follow-up Treatment Plan: Bipolar I disorder mixed severe with psychotic features -psychotherapy -supportive therapy, group therapy, individual therapy -Atarax 25 mg PO Q6 prn -Seroquel 200 mg PO bid Alcohol use disorder moderate -psychoeducation -supportive therapy, group therapy, individual therapy -MA for abstinence -Librium 25 mg PO Q8 prn -Clonidine 0.1 mg PO Q8 prn -Thiamine 100 mg PO daily -Folic acid 1 mg PO daily -Multivitamin daily Opiate use disorder moderate -psychoeducation -supportive therapy, group therapy, individual therapy -MA for abstinence -Ibuprofen 400 mg PO Q6 prn -Imodium 2 mg PO Q8 prn -Zofran 4 mg PO Q8 prn HTN -Norvasc 10 mg PO daily Asthma -Albuterol INH RQ4 Prescriptions/Medication Reconciliation: amLODIPine [Norvasc] 10 mg PO DAILY #30 tab Pantoprazole [Protonix EC Tab] 20 mg PO BID #60 ect QUEtiapine [SEROquel] 200 mg PO BID #60 tab - Smoking Cessation Smoking Cessation Medication prescribed: No - Antipsychotic Medications Pt discharged on 2 or more routine antipsychotic medications: No
== END 2017-09-20 10:55 | disposition home or self-care (01) | DRG 430 ==
LOC: C.ER 14:50 → C.9E 19:13 → C.5E 19:47
PROVIDERS: ADMIT Psychiatry & Neurology Psychiatry; ATTEND Psychiatry & Neurology Psychiatry
PROC: HZ2ZZZZ Detoxification Services for Substance Abuse Treatment (ICD-10-PCS; principal; 2017-09-13)
DX: F31.64 Bipolar disorder, current episode mixed, severe, with psychotic features (principal); F11.20 Opioid dependence, uncomplicated; F41.9 Anxiety disorder, unspecified; G89.29 Other chronic pain; I10 Essential (primary) hypertension; J45.909 Unspecified asthma, uncomplicated; Z87.891 Personal history of nicotine dependence; F10.220 Alcohol dependence with intoxication, uncomplicated; Y90.4 Blood alcohol level of 80-99 mg/100 ml

== ENCOUNTER 2017-10-15 16:37 | Inpatient (IN) | payer MEDICAID ==
[2017-10-15 17:48] LABS: BASO # 0.2 K/uL (0.0-0.2); BASO % 1.5 % (0.0-2.0); EOS # 0.2 K/uL (0.0-0.7); EOS % 1.7 % (0.0-4.0); HEMOGLOBIN 14.9 g/dL (12.0-18.0); LYMPH # 1.6 K/uL (1.0-4.3); LYMPH % 15.9 % (20.0-40.0); MEAN CELL VOLUME 89.7 fL (80.0-94.0); MEAN CORPUSCULAR HEMOGLOBIN 31.2 pg (27.0-31.0); MEAN CORPUSCULAR HGB CONC 34.7 g/dL (33.0-37.0); MEAN PLATELET VOLUME 7.3 fL (7.2-11.7); MONO # 0.8 K/uL (0.0-0.8); MONO % 8.2 % (0.0-10.0); NEUT # 7.5 K/uL (1.8-7.0); NEUT % 72.7 % (50.0-75.0); RBC 4.79 Mil/uL (4.40-5.90); RED CELL DISTRIBUTION WIDTH 13.2 % (11.5-14.5); WHITE BLOOD COUNT 10.3 K/uL (4.8-10.8)
--- NOTE | 2017-10-15 17:48 | C.PDOC ---
History Of Present Illness <Sabra Ervin - Last Filed: 10/15/17 18:41> <Gutierrez Das - Last Filed: 10/15/17 22:09> 57 year old male presents to ED requesting detox of heroin and reports last use was one hour ago. Denies other drug use or other complaints. (Sabra Ervin Mouna) History Per: Patient History/Exam Limitations: no limitations Onset/Duration Of Symptoms: Days Modifying Factor(s): Narcotics <Sarba Ervin - Last Filed: 10/15/17 18:41> <Gutierrez Das - Last Filed: 10/15/17 22:09> Time Seen by Provider: 10/15/17 16:52 Chief Complaint (Nursing): Substance Abuse Past Medical History Reviewed: Historical Data, Nursing Documentation, Vital Signs - Medical History PMH: Asthma, Bipolar Disorder, Depression, HTN, Schizophrenia Surgical History: No Surg Hx Family History: States: Unknown Family Hx - Social History Hx Alcohol Use: Yes Hx Substance Use: Yes - Immunization History Hx Tetanus Toxoid Vaccination: No Hx Influenza Vaccination: No Hx Pneumococcal Vaccination: No <Sabra Ervin - Last Filed: 10/15/17 18:41> Vital Signs: Last Vital Signs Temp 98.8 F 10/15/17 21:23 Pulse 92 H 10/15/17 21:23 Resp 18 10/15/17 21:23 BP 151/92 H 10/15/17 21:23 Pulse Ox 95 10/15/17 21:23 - [facility] Procedures DETOXIFICATION SERVICES FOR SUBSTANCE ABUSE TREATMENT (09/13/17) INDIVIDUAL PSYCHOTHERAPY, SUPPORTIVE (12/28/16) Review Of Systems Except As Marked, All Systems Reviewed And Found Negative. Psych: Positive for: Other (OPIATE USE) <Sabra Ervin - Last Filed: 10/15/17 18:41> Physical Exam - Physical Exam Appears: Non-toxic, No Acute Distress Skin: Warm, Dry Head: Atraumatic, Normacephalic Eye(s): bilateral: Normal Inspection, PERRL, EOMI Nose: Normal Oral Mucosa: Moist Neck: Normal ROM Chest: Symmetrical Cardiovascular: Rhythm Regular, No Murmur Respiratory: Normal Breath Sounds, No Wheezing Gastrointestinal/Abdominal: Normal Exam, Bowel Sounds, Soft, No Tenderness, No Guarding Extremity: Bilateral: Atraumatic, Normal ROM Neurological/Psych: Oriented x3, Normal Speech <Sabra Ervin Mouna - Last Filed: 10/15/17 18:41> ED Course And Treatment - Laboratory Results Result Diagrams: 10/15/17 17:39 10/15/17 17:39 O2 Sat by Pulse Oximetry: 98 <ArcadioSabra Mouna - Last Filed: 10/15/17 18:41> - Laboratory Results Result Diagrams: 10/15/17 17:39 10/15/17 17:39 <Giulia Dasjessenia - Last Filed: 10/15/17 22:09> Medical Decision Making <Sabra Ervin - Last Filed: 10/15/17 18:41> <Gutierrez Das - Last Filed: 10/15/17 22:09> Medical Decision Making: Labs ordered and reviewed. In my clinical judgment patient is medically cleared and stable for admission. 1835 patient still has not provided urine specimen c iron worker evaluation still pending. Case signed out to DR Das pending urine drug screen results for medical clearance and crisis eval (ArcadioSabra L) Disposition - Disposition Disposition Time: 18:37 - POA Present On Arrival: None <Sabra Ervin - Last Filed: 10/15/17 18:41> Discussed With : Mateusz Wilson Comment: accepted the pt on his service and took over the care at 10PM Doctor Will See Patient In The: Hospital Counseled Patient/Family Regarding: Studies Performed, Diagnosis - POA Present On Arrival: None <Gutierrez Das - Last Filed: 10/15/17 22:09> - Disposition Disposition: HOSPITALIZED Condition: FAIR - Clinical Impression Clinical Impression: Heroin use disorder, severe, dependence, Schizophrenia, Alcohol abuse Decision To Admit <Sabra Ervin - Last Filed: 10/15/17 18:41> - Pt Status Changed To: Hospital Disposition Of: Inpatient - Admit Certification Admit to Inpatient:: After my assessment, the patient will require hospitalization for at least two midnights. This is because of the severity of symptoms shown, intensity of services needed, and/or the medical risk in this patient being treated as an outpatient. - InPatient: Physician Admission Certification: I certify that this patient requires 2 or more midnights of care for the following reason:: After my assessment, the patient will require hospitalization for at least two midnights. This is because of the severity of symptoms shown, intensity of services needed, and/or the medical risk in this patient being treated as an outpatient. - . Bed Request Type: Detox Admitting Physician: Mateusz Wilson <Gutierrez Das - Last Filed: 10/15/17 22:09> - . Patient Diagnosis: Heroin use disorder, severe, dependence, Schizophrenia, Alcohol abuse
[2017-10-15 18:04] LABS: ALB/GLOB RATIO 1.2 (1.0-2.1); ALBUMIN 5.1 g/dL (3.5-5.0); CALCIUM 9.6 mg/dl (8.6-10.4)
[2017-10-15 20:04] LABS: SQUAMOUS EPITHIAL 1 /hpf (0-5); URINE BACTERIA RARE (<OCC); URINE BILIRUBIN NEGATIVE (NEGATIVE); URINE BLOOD NEGATIVE (NEGATIVE); URINE CLARITY Hazy (Clear); URINE COLOR Yellow (YELLOW); URINE GLUCOSE (UA) NORMAL (Normal); URINE HYALINE CAST >20 /lpf (0-2); URINE LEUKOCYTE ESTERASE NEG Leu/uL (Negative); URINE PROTEIN 1+ mg/dL (NEGATIVE); URINE UROBILINOGEN NORMAL mg/dL (0.2-1.0)
[2017-10-15 20:11] LABS: BARBITURATES, UR NEGATIVE (NEGATIVE); BENZODIAZEPINES, UR NEGATIVE (NEGATIVE); OPIATES, UR POSITIVE (NEGATIVE); PHENCYCLIDINE, UR NEGATIVE (NEGATIVE)
[2017-10-15] MEDS ORDERED: Albuterol HFA 90 mcg/actuation (8 g) IH PRN (22:24)
--- NOTE | 2017-10-15 22:27 | PCM.BM ---
Treatment Plan Problems - Problems identified on initial assessmt Problem 2 Date Initiated: 10/15/17 Time Initiated: 22:27 Status: Active Treatment assets and liabiliti Patient Assests: adapts well, cooperative, educated, self-reliant, ADL independent, good support system, negotiates basic needs, cognitively intact
--- NOTE | 2017-10-15 22:28 | PCM.BM ---
Treatment assets and liabiliti Patient Assests: adapts well, cooperative, educated, self-reliant, ADL independent, good support system, negotiates basic needs, cognitively intact Patient Liabilities: substance abuse, medical problems - Milieu Protocol Maintain good personal hygiene: daily Encourage regular showers, daily Remind patient to perform daily oral care, daily Assist patient to perform ADL's Conduct patient checks and document Observation sheet: Q15 minutes Maintain personal safety: every shift Educate patient to report safety concerns to staff, every shift Monitor environment for contraband/sharps Medication safety: Monitor for expected outcome, potential side effects: every shift, Assess barriers to learning: every shift, Assess readiness for medication education: every shift
--- NOTE | 2017-10-15 22:32 | PCM.BM ---
<Oscar Torres - Last Filed: 10/15/17 22:30> Treatment Plan Problems - Problems identified on initial assessmt potential for opiate withdrawal Date Initiated: 10/15/17 Time Initiated: 22:31 Status: Active Treatment assets and liabiliti Patient Assests: adapts well, cooperative, self-reliant, ADL independent, good support system, negotiates basic needs, cognitively intact Patient Liabilities: substance abuse, medical problems - Milieu Protocol Maintain good personal hygiene: daily Encourage regular showers, daily Remind patient to perform daily oral care, daily Assist patient to perform ADL's Maintain personal safety: every shift Educate patient to report safety concerns to staff, every shift Monitor environment for contraband/sharps Medication safety: Monitor for expected outcome, potential side effects: every shift, Assess barriers to learning: every shift, Assess readiness for medication education: every shift <Mateusz Wilson - Last Filed: 10/16/17 13:09> Treatment Plan Problems - Problems identified on initial assessmt potential for opiate withdrawal Date Initiated: 10/15/17 Time Initiated: 22:31 Status: Active - Diagnosis (1) Opioid use disorder, severe, dependence Status: Acute Interventions: 10/16/17 13:09 * Assess 7x/week regarding severity of withdrawal * Educate regarding risks, benefits, side effects and alternatives of medications * Use Motivational Interviewing for abstinence * Use CBT for relapse prevention * Medication management for withdrawal symptoms * Encourage medication assisted treatment * (2) Alcohol use disorder, moderate, dependence Status: Acute Interventions: 10/16/17 13:10 * Assess 7x/week regarding severity of withdrawal * Educate regarding risks, benefits, side effects and alternatives of medications * Use Motivational Interviewing for abstinence * Use CBT for relapse prevention * Medication management for withdrawal symptoms * Encourage medication assisted treatment * (3) Bipolar 1 disorder Status: Acute Interventions: 10/16/17 13:10 * Assess/adjust medications daily and /or as needed * See patient on an individual basis 7x/week to assess level of manic behaviors and stability * Discuss risks, benefits, side effects and alternatives of medications * <Iris Cates - Last Filed: 10/17/17 08:20> Treatment Plan Problems - Problems identified on initial assessmt potential for opiate withdrawal Date Initiated: 10/15/17 Time Initiated: 22:31 Status: Active Family Contact Family involvement: Boogie/SO not involved - Goals for Treatment Patient goals for treatment: Complete detox and transition to IOP at [facility]. Discharge/Continuing Care - Education Needs Education Needs: Patient Medication, Patient Diagnosis/Disease Process, Patient Coping Skills, Patient Anger Management skills, Patient Placement options, Patient Community resources - Discharge Discharge Criteria: No longer exhibiting s/s of withdrawal, Reduction of target symptoms Discharge to:: Home - Treatment Team Participation Patient/Family/SO Statement: 10/17/17 08:20 "I wanna go to [facility] across the [address]." Discussed with Family/SO: No Was Patient/Family/SO present at Treatment Team Meeting: Yes
[2017-10-15] MEDS ORDERED: Aluminum Hydroxide/Magnesium Hydroxide Susp (30 mL) PO PRN (22:47)
[2017-10-16] MEDS: Pantoprazole 20 mg EC Tab PO SCH ×2 (09:09→17:20)
[2017-10-16] MEDS: Multiple Vitamins Tab PO SCH (09:09)
--- NOTE | 2017-10-16 13:13 | PCM.PSYCH ---
Initial Psychiatric Evaluation - Initial Psychiatric Evaluation Type of Admission: Voluntary Legal Status: Capacity Chief Complaint (in patient's own words): "I relapsed" History of Present Illness and Precipitating Events: The patient is seen, chart reviewed and case discussed. He is known from previous psychiatric admissions. 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 The patient is here for heroin detox; using 8-10 backs intranasally for the past 10 years. He says he relapsed about 2 months ago and this is his second detox. He was in rehabilitation 1 time at [place]. He also went to [facility] program "couple of years ago" and his dose was a 20 mg but he stopped when he was arrested. He also drinks half pint or more alcohol, liquor and beer, everyday. He reports withdrawal symptoms but denies DTs or seizures. He smokes quarterback at a day but denies all other drugs and marijuana. Past psych history: He was diagnosed with bipolar disorder and hospitalized 4 times. He is stabilized on Seroquel which he still takes. Medical history: Asthma and hypertension Family psych history: One cousin committed suicide Current Medications: Active Medications Generic Name Dose Route Start Last Admin Trade Name Freq PRN Reason Stop Dose Admin Al Hydrox/Mg Hydrox/Simethicone 30 ml 10/15/17 22:47 Maalox 30 Ml PO TID PRN Indigestion / Heartburn Albuterol 2 puff 10/15/17 22:24 Ventolin Hfa 90 Mcg/Actuation (8 G) IH RQ6 PRN sob Amlodipine Besylate 10 mg 10/16/17 10:00 10/16/17 09:09 Norvasc PO 10 mg DAILY LENARD Administration Chlordiazepoxide 25 mg 10/16/17 00:00 10/16/17 12:51 Librium PO 10/19/17 23:59 Not Given Q6 LENARD Taper Chlordiazepoxide 25 mg 10/15/17 22:41 Librium PO Q4H PRN Alcohol Withdrawal Clonidine HCl 0.1 mg 10/15/17 22:41 Catapres PO Q4H PRN Symptoms of alcohol withdrawl Folic Acid 1 mg 10/16/17 10:00 10/16/17 09:09 Folic Acid PO 1 mg DAILY LENARD Administration Hydrochlorothiazide 25 mg 10/16/17 10:00 10/16/17 09:09 Hydrodiuril PO 25 mg DAILY LENARD Administration Loperamide HCl 2 mg 10/15/17 22:47 Imodium PO Q8 PRN Diarrhea Multivitamins 1 tab 10/16/17 10:00 10/16/17 09:09 Hexavitamin PO 1 tab DAILY LENARD Administration Ondansetron HCl 4 mg 10/15/17 22:47 Zofran Tab PO Q8 PRN Nausea/Vomiting Pantoprazole Sodium 20 mg 10/16/17 10:00 10/16/17 09:09 Protonix Ec Tab PO 20 mg BID LENARD Administration Quetiapine Fumarate 200 mg 10/16/17 22:00 Seroquel PO HS LENARD Quetiapine Fumarate 100 mg 10/16/17 10:15 10/16/17 10:32 Seroquel PO 100 mg DAILY LENARD Administration Thiamine HCl 100 mg 10/16/17 10:00 10/16/17 09:09 Vitamin B1 Tab PO 100 mg DAILY LENARD Administration Trazodone HCl 50 mg 10/15/17 22:41 10/15/17 23:29 Desyrel PO 50 mg HS PRN Administration Insomnia Past Psychiatric History - Past Psychiatric History Previous Treatment History: Inpatient Pertinent Medical Hx (Current Medical&Sleep Prob, Allergies): Allergies Allergy/AdvReac Type Severity Reaction Status Date / Time FISH Allergy Verified 10/15/17 16:47 tomato Allergy Verified 10/15/17 16:47 amLODIPine [Norvasc] 10 mg PO DAILY #30 tab 01/05/17 Pantoprazole [Protonix EC Tab] 20 mg PO BID #60 ect 09/20/17 QUEtiapine [SEROquel] 200 mg PO BID #60 tab 09/20/17 Albuterol HFA [Ventolin HFA 90 mcg/actuation (8 g)] 2 puff IH [id number] PRN busPIRone [Buspar] 10 mg PO TID 10/15/17 hydroCHLOROthiazide [Hydrodiuril] 25 mg PO DAILY 10/15/17 Review of Systems - Neurological Neurological: UNREMARKABLE - Psychiatric Psychiatric: Abnormal Sleep Pattern, Anhedonia, Anxiety, Depression, Difficulty Concentrating. absent: Hallucinations, Homicidal Ideation, Paranoia, Suicidal Ideation Mental Status Examination - Personal Presentation Personal Presentation: Looks stated age - Affect Affect: Constricted - Motor Activity Motor Activity: Calm - Reliability in Providing Information Reliability in Providing Information: Good - Speech Speech: Organized - Mood Mood: Depressed (mild), Anxious - Formal Thought Process Formal Thought Process: No Impairment - Cognitive Functions Orientation: Person, Place, Situation, Time Sensorium: Alert Attention/Concentration: Attentive Estimate of Intelligence: Average Judgement: Intact, as evidence by: Insight regarding need for hospitalization Memory: Recent intact, as evidence by: Ability to recall events of the day, Remote intact, as evidenced by: Abilit to recall sig. life events - Risk Risk: Withdrawal, Diminished functioning - Strength & Assets Inventory Strength & Assets Inventory: Family support, Cooperative - Limitations Limitations: Other DSM 5 DX - DSM 5 DSM 5 Diagnosis: Opioid withdrawal Opioid use disorder, severe Alcohol use disorder, severe Alcohol withdrawal Tobacco use disorder, mild Bipolar 1 disorder, depressed HTN Asthma - Recommended/Plan of Treatment Treatment Recommendations and Plan of Treatment: Taper with methadone Seroquel 100+200 for bipolar 1 depressed Gabapentin for augmentation As needed medications All risks, benefits and alternatives of the meds discussed, and the pt agreed and understood. Attend groups and activities Supportive therapy and psychoeducation [place] for abstinence CBT for relapse prevention Encourage MAT Refer to rehab or IOP, and self-help groups Smoking cessation with [place] Nicotine patch if needed 34 min Projected ELOS: 5-6 days Prognosis: good w treatment Discharge Plan and Discharge Criteria: MAt and IOP - Smoking Cessation Smoking Cessation Initiated: Yes
[2017-10-17] MEDS: Pantoprazole 20 mg EC Tab PO SCH ×2 (09:54→17:24)
[2017-10-17] MEDS: Multiple Vitamins Tab PO SCH (09:54)
--- NOTE | 2017-10-17 16:49 | PCM.PYCHPN ---
Psychiatric Progress Note - Psychiatric Progress Note Patient seen today, length of contact: 16 min Patient Chief Complaint: "I am a little better" Problems Identified/Issues Discussed: The pt is seen, chart reviewed, case discussed with staff. The pt is compliant with medications and reports no side-effects. Symptoms are improving but needs more time to stabilize. After care discussed, support and psychoeducation given. Medication Change: Yes (detox changes daily) Medical Record Reviewed: Yes Mental Status Examination - Cognitive Function Orientation: Person, Place, Situation, Time Memory: Intact Attention: WNL Concentration: Poor Association: WNL Fund of Knowledge: WNL - Mood Mood: Depressed (mild), Anxious - Affect Affect: Constricted - Speech Speech: Appropriate - Formal Thought Process Formal Thought Process: No Impairment - Suicidal Ideation Suicidal Ideation: No - Homicidal Ideation Homicidal Ideation: No Goal/Treatment Plan - Goal/Treatment Plan Need for Continued Stay: Discharge may exacerbated symptoms, Severe functional impairment Progress Toward Problem(s) and Goals/Treatment Plan: Taper with methadone Seroquel 100+200 for bipolar 1 depressed Gabapentin for augmentation As needed medications All risks, benefits and alternatives of the meds discussed, and the pt agreed and understood. Attend groups and activities Supportive therapy and psychoeducation [place] for abstinence CBT for relapse prevention Encourage MAT Refer to rehab or IOP, and self-help groups Smoking cessation with [place] Nicotine patch if needed Estimated Date of D/C: 10/20/17
[2017-10-18] MEDS: Multiple Vitamins Tab PO SCH (09:29)
[2017-10-18] MEDS: Pantoprazole 20 mg EC Tab PO SCH ×2 (09:29→17:13)
--- NOTE | 2017-10-18 12:44 | PCM.PYCHPN ---
Psychiatric Progress Note - Psychiatric Progress Note Patient seen today, length of contact: 15 minute Patient Chief Complaint: "I am so-so" Problems Identified/Issues Discussed: The pt is seen, chart reviewed, case discussed with staff. Support and psychoeducation given, CBT and [place] used briefly No new symptoms reported, improving slowly and needs more time No SEs from medications, risks discussed. After care discussed Medication Change: Yes (detox changes daily) Medical Record Reviewed: Yes Mental Status Examination - Cognitive Function Orientation: Person, Place, Situation, Time Memory: Intact Attention: WNL Concentration: Poor Association: WNL Fund of Knowledge: WNL - Mood Mood: Depressed (mild), Anxious - Affect Affect: Constricted - Speech Speech: Appropriate - Formal Thought Process Formal Thought Process: No Impairment - Suicidal Ideation Suicidal Ideation: No - Homicidal Ideation Homicidal Ideation: No Goal/Treatment Plan - Goal/Treatment Plan Need for Continued Stay: Discharge may exacerbated symptoms, Severe functional impairment Progress Toward Problem(s) and Goals/Treatment Plan: Taper with methadone Seroquel 100+200 for bipolar 1 depressed Gabapentin for augmentation As needed medications All risks, benefits and alternatives of the meds discussed, and the pt agreed and understood. Attend groups and activities Supportive therapy and psychoeducation [place] for abstinence CBT for relapse prevention Encourage MAT Refer to rehab or IOP, and self-help groups Smoking cessation with [place] Nicotine patch if needed Estimated Date of D/C: 10/21/17
[2017-10-19] MEDS: Pantoprazole 20 mg EC Tab PO SCH ×2 (09:42→17:23)
[2017-10-19] MEDS: Multiple Vitamins Tab PO SCH (09:42)
--- NOTE | 2017-10-19 13:34 | PCM.PYCHPN ---
Psychiatric Progress Note - Psychiatric Progress Note Patient seen today, length of contact: 15 minutes Patient Chief Complaint: "I am better" Problems Identified/Issues Discussed: The pt is seen, chart reviewed, case discussed with staff. The pt is compliant with medications and reports no side-effects. Symptoms are improving but needs more time to stabilize. After care discussed, support and psychoeducation given. He reports some anxiety in the morning and he will use Atarax Medication Change: Yes (detox changes daily) Medical Record Reviewed: Yes Mental Status Examination - Cognitive Function Orientation: Person, Place, Situation, Time Memory: Intact Attention: WNL Concentration: Poor Association: WNL Fund of Knowledge: WNL - Mood Mood: Depressed (mild), Anxious - Affect Affect: Constricted - Speech Speech: Appropriate - Formal Thought Process Formal Thought Process: No Impairment - Suicidal Ideation Suicidal Ideation: No - Homicidal Ideation Homicidal Ideation: No Goal/Treatment Plan - Goal/Treatment Plan Need for Continued Stay: Discharge may exacerbated symptoms, Severe functional impairment Progress Toward Problem(s) and Goals/Treatment Plan: Taper with methadone Seroquel 100+200 for bipolar 1 depressed Gabapentin for augmentation As needed medications All risks, benefits and alternatives of the meds discussed, and the pt agreed and understood. Attend groups and activities Supportive therapy and psychoeducation AR for abstinence CBT for relapse prevention Encourage MAT Refer to rehab or IOP, and self-help groups Smoking cessation with AR Nicotine patch if needed Estimated Date of D/C: 10/21/17
[2017-10-20] MEDS: Pantoprazole 20 mg EC Tab PO SCH ×2 (09:32→17:19)
[2017-10-20] MEDS: Multiple Vitamins Tab PO SCH (09:32)
--- NOTE | 2017-10-20 09:50 | PCM.PYCHPN ---
Psychiatric Progress Note - Psychiatric Progress Note Patient seen today, length of contact: 15 minutes Patient Chief Complaint: "I'm improving" Problems Identified/Issues Discussed: The pt is seen, chart reviewed, case discussed with staff. Support and psychoeducation given, CBT and MN used briefly No new symptoms reported, improving slowly and needs more time No SEs from medications, risks discussed. After care discussed Medication Change: Yes (detox changes daily) Medical Record Reviewed: Yes Mental Status Examination - Cognitive Function Orientation: Person, Place, Situation, Time Memory: Intact Attention: WNL Concentration: Poor Association: WNL Fund of Knowledge: WNL Decription of patient's judgement and insights: fair/fair - Mood Mood: Depressed (mild), Anxious - Affect Affect: Constricted - Speech Speech: Appropriate - Formal Thought Process Formal Thought Process: No Impairment - Suicidal Ideation Suicidal Ideation: No Plan: denied - Homicidal Ideation Homicidal Ideation: No Plan: denied Goal/Treatment Plan - Goal/Treatment Plan Need for Continued Stay: Discharge may exacerbated symptoms, Severe functional impairment Progress Toward Problem(s) and Goals/Treatment Plan: Continue medications Support and psychoeducation daily Attend groups and activities daily After care planning by CEM Estimated Date of D/C: 10/21/17
[2017-10-20 11:03] VITALS: RESP 18
[2017-10-21] MEDS: Pantoprazole 20 mg EC Tab PO SCH (09:11)
[2017-10-21] MEDS: Multiple Vitamins Tab PO SCH (09:11)
--- NOTE | 2017-10-21 09:45 | PCM.PYCHDC ---
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 The patient is here for heroin detox; using 8-10 backs intranasally for the past 10 years. He says he relapsed about 2 months ago and this is his second detox. He was in rehabilitation 1 time at [facility]. He also went to [facility] program "couple of years ago" and his dose was a 20 mg but he stopped when he was arrested. He also drinks half pint or more alcohol, liquor and beer, everyday. He reports withdrawal symptoms but denies DTs or seizures. He smokes quarterback at a day but denies all other drugs and marijuana. Past psych history: He was diagnosed with bipolar disorder and hospitalized 4 times. He is stabilized on Seroquel which he still takes. Medical history: Asthma and hypertension Family psych history: One cousin committed suicide Consultations:: List each consultation separately and include: 1. Reason for request. 2. Findings. 3. Follow-up Summary of Hospital Course include:: 1. Description of specific treatment plan utilized for patients during their course of treatmen. 2. Summarize the time- course for resolution of acute symptoms and/or regressed behaviors. 3. Describe issues identified and worked on during hospitalization. 4. Describe medication utilized. 5. Describe medical problems identified and treated. 6. Reassessment of suicide risk Summary of Hospital Course: The pt was admitted and started on treatment with psychotherapy, support, psychoeducation and medications. DC and CBT used. The pt attended groups and activities, as well as milieu therapy. All the risks and benefits of medications are discussed and the patient understood and agreed. The pt improved with the treatments provided. After care discussed with the patient. He will f/u with [facility] Dx: Opioid withdrawal Opioid use disorder, severe Alcohol use disorder, severe Alcohol withdrawal Tobacco use disorder, mild Bipolar 1 disorder, depressed HTN Asthma - Final Diagnosis (DSM 5) Condition upon Discharge: FAIR Disposition: HOME/ ROUTINE Follow-up Treatment Plan: Continue below medications after discharge. Follow after care plan as discussed. Use relapse prevention copying skills Return to ER or call 911 if suicidal, homicidal or symptoms relapse. Stay away from stress, alcohol and drugs. See primary doctor once a year. Time spend 28 minutes Prescriptions/Medication Reconciliation: Albuterol HFA [Ventolin HFA 90 mcg/actuation (8 g)] 2 puff IH RQ6 PRN 30 Days # 1 inhaler PRN Reason: sob Gabapentin [Neurontin] 100 mg PO TID 15 Days #45 cap Multivitamins [Hexavitamin] 1 tab PO DAILY 30 Days #30 tab traZODone [Desyrel] 50 mg PO HS PRN 15 Days #15 tab PRN Reason: Insomnia - Smoking Cessation Smoking Cessation Medication prescribed: Yes - Antipsychotic Medications Pt discharged on 2 or more routine antipsychotic medications: No
[2017-10-21 10:40] VITALS: BP 146/85; PULSE 100; TEMP 97.6; O2SAT 98
== END 2017-10-21 10:25 | disposition home or self-care (01) | DRG 744 ==
LOC: C.ER 16:37 → C.7D 22:06
PROVIDERS: ADMIT Psychiatry & Neurology Psychiatry; ATTEND Psychiatry & Neurology Psychiatry
PROC: HZ52ZZZ Individual Psychotherapy for Substance Abuse Treatment, Cognitive-Behavioral (ICD-10-PCS; principal; 2017-10-15)
PROC: HZ2ZZZZ Detoxification Services for Substance Abuse Treatment (ICD-10-PCS; 2017-10-15)
PROC: HZ83ZZZ Medication Management for Substance Abuse Treatment, Antabuse (ICD-10-PCS; 2017-10-15)
PROC: HZ59ZZZ Individual Psychotherapy for Substance Abuse Treatment, Supportive (ICD-10-PCS; 2017-10-15)
PROC: HZ52ZZZ Individual Psychotherapy for Substance Abuse Treatment, Cognitive-Behavioral (ICD-10-PCS; 2017-10-15)
PROC: HZ56ZZZ Individual Psychotherapy for Substance Abuse Treatment, Psychoeducation (ICD-10-PCS; 2017-10-15)
DX: F11.23 Opioid dependence with withdrawal (principal); F20.9 Schizophrenia, unspecified; F10.239 Alcohol dependence with withdrawal, unspecified; F17.200 Nicotine dependence, unspecified, uncomplicated; F31.9 Bipolar disorder, unspecified; F41.9 Anxiety disorder, unspecified; I10 Essential (primary) hypertension; J45.909 Unspecified asthma, uncomplicated